=== PATIENT | male | born 1980 | race Caucasian/White ===

== ENCOUNTER 2020-09-06 04:16 | Emergency (ER) | payer OTHER, BC ==
--- NOTE | 2020-09-06 05:59 | RADIOLOGY REPORT (SQ) ---
EXAM DESCRIPTION: XR ANKLE 3 OR MORE VIEWS COMPLETED DATE/TME: 09/06/2020 05:01 CLINICAL HISTORY: 39 years, Male, INJURY COMPARISON: None. NUMBER OF VIEWS: 3 TECHNIQUE: 3 view left ankle LIMITATIONS: None. FINDINGS: Comminuted mildly displaced fracture of the distal fibular metadiaphysis. Adjacent soft tissue swelling. No other acute fractures. Ankle mortise is otherwise intact. Soft tissue calcifications of the medial ankle. IMPRESSION: Comminuted mildly displaced fracture of the distal fibula, as above copyright 2010 [employer]- All Rights Reserved
--- NOTE | 2020-09-06 06:50 | ER Document Report ---
ED Extremity Problem, Lower - General Chief Complaint: Ankle Injury Stated Complaint: LEFT ANKLE INJURY Time Seen by Provider: 09/06/20 05:33 Primary Care Provider: DAMARI HARDY JR, DO [ACTIVE PROVISIONAL STAFF] - Follow up as needed Mode of Arrival: Ambulatory Information source: Patient Notes: 31 of male patient presents emergency department chief complaint of left ankle injury. Patient reports he was walking when he twisted his ankle. He does report use of EtOH tonight. Denies any history of previous trauma to this area. - Related Data Allergies/Adverse Reactions: No Known Allergies Allergy (Unverified 09/06/20 04:24) Past Medical History - General Information source: Patient - Social History Smoking Status: Former Smoker Frequency of alcohol use: Occasional Drug Abuse: None Family History: Reviewed & Not Pertinent - Past Medical History Cardiac Medical History: Reports: Hx Hypertension Surgical Hx: Negative Review of Systems - Review of Systems Musculoskeletal: See HPI -: Yes All other systems reviewed and negative Physical Exam - Vital signs Vitals: Temp Pulse Resp BP Pulse Ox 97.6 F 102 H 16 139/72 H 97 09/06/20 04:20 09/06/20 04:20 09/06/20 04:20 09/06/20 04:20 09/06/20 04:20 - Notes Notes: PHYSICAL EXAMINATION: GENERAL: Well-appearing, well-nourished and in no acute distress. HEAD: Atraumatic, normocephalic. EYES: Pupils equal round extraocular movements intact, conjunctiva are normal. ENT: Nares patent NECK: Normal range of motion LUNGS: No respiratory distress Musculoskeletal: Limited range of motion at left ankle. Swelling noted to the lateral aspect. Strong dorsalis pedis pulse, cap refill less than 3 seconds distally. Normal sensation distally. NEUROLOGICAL: Normal speech. PSYCH: Normal mood, normal affect. SKIN: Warm, Dry, normal turgor, no rashes or lesions noted. Course - Re-evaluation Re-evalutation: Ankle X-Ray 09/06/20 04:31 IMPRESSION: Comminuted mildly displaced fracture of the distal fibula, as above - Vital Signs Vital signs: Temp Pulse Resp BP Pulse Ox 97.7 F 113 H 17 150/87 H 100 09/06/20 06:52 09/06/20 06:52 09/06/20 06:52 09/06/20 06:52 09/06/20 06:52 - Laboratory Results Critical Laboratory Results Reviewed: No Critical Results - Radiology Results Critical Radiology Results Reviewed: No Critical Results Procedures - Immobilization Left ankle Pre-Proc Neuro Vasc Exam: Normal Immobilizer type: Crutches, Short Leg Posterior Performed by: PCT Post-Proc Neuro Vasc Exam: Normal Alignment checked and good: Yes Discharge - Discharge Clinical Impression: Fractured fibula Qualifiers: Encounter type: initial encounter Fibula location: distal Fracture type: closed Fracture morphology: unspecified fracture morphology Laterality: left Qualified Code(s): S82.832A - Other fracture of upper and lower end of left fibula, initial encounter for closed fracture Condition: Stable Disposition: HOME, SELF-CARE Additional Instructions: Fracture of Distal Fibula You have a fracture at the end of the fibula, the smaller bone in the lower leg. The fracture is across the bony bump on the outer side of the ankle. This fracture will usually heal well, but must be protected from the pull of ligaments and tendons at the ankle. If this fracture rotates out of position (or is felt likely to rotate), it must be operated on. Initially, the extremity should be kept elevated, with ice packs applied frequently. This fracture is usually treated with a cast or walking boot. If a walking boot has been selected, it's critical that it NOT be removed without the doctor's approval, not even for sleeping or baths. Healing of this fracture takes about four to eight weeks. Younger patients heal more quickly. An X-ray is usually required during healing to check for complications and to assess healing. Call the doctor or return at once if there is severe swelling, increasing pain, or numbness in the foot. Take pain medication as prescribed for severe pain only. Otherwise take ibuprofen 600 mg every 6 hours or 800 mg every 8 hours. Follow-up with orthopedics, call them at your earliest convenience to make an follow-up aj ointment. Keep the splint in place until seen by orthopedics. Use the crutches as instructed. Prescriptions: Hydrocodone/Acetaminophen [[place] 5-325 mg Tablet] 1 tab PO Q6HP PRN #10 tablet PRN Reason: Referrals: DAMARI HARDY JR, [ACTIVE PROVISIONAL STAFF] - Follow up as needed
[2020-09-06 06:53] VITALS: BP 150/87
== END 2020-09-06 07:01 | disposition home or self-care (01) ==
LOC: ER 04:16
DX: S82.832A Other fracture of upper and lower end of left fibula, initial encounter for closed fracture (principal); F10.10 Alcohol abuse, uncomplicated; X50.1XXA Overexertion from prolonged static or awkward postures, initial encounter; Z87.891 Personal history of nicotine dependence; I10 Essential (primary) hypertension
CPT/HCPCS: 99284